=== PATIENT | male | born 1975 | race Caucasian/White ===

== ENCOUNTER 2016-12-10 15:43 | Inpatient (IN) | payer MEDICAID ==
[~2016-12-10] VITALS: Ht 160 cm; Wt 66.7 kg
[2016-12-10 16:01] VITALS: BP 144/86
[2016-12-10] MEDS ORDERED: ACETAMINOPHEN EXTRA STRENGTH 500 MG TAB ONE (16:06)
--- NOTE | 2016-12-10 16:13 | NUR ---
Patient taken to CT via wheelchair per tech--from lobby.
--- NOTE | 2016-12-10 16:23 | NUR ---
Patient back from CT via wheelchair per tech--to lobby.
--- NOTE | 2016-12-10 17:53 | NUR ---
Patient ambulated to bed 04.
[2016-12-10] MEDS ORDERED: KETOROLAC 30 MG/ML VIAL IVP ONE (17:55)
[2016-12-10] MEDS ORDERED: NACL 0.9% 1,000 ML IV ONE ×2 (17:55→19:20)
--- NOTE | 2016-12-10 18:15 | NUR ---
LAB at bedside.
--- NOTE | 2016-12-10 18:23 | NUR ---
PT PRESENTS TO ER W/C/O RLQ PAIN SINCE THIS AM. DENIES DIARRHEA; SKIN IS PINK/WARM/DRY; AAOX4 WITH EVEN AND STEADY GAIT; LUNGS CLEAR BL; HR EVEN AND REGULAR; PT DENIES ANY FEVER, CP, SOB, OR COUGH AT THIS TIME; PATIENT STATES PAIN OF 7/10 AT THIS TIME; VSS; PATIENT POSITIONED FOR COMFORT; HOB ELEVATED; BEDRAILS UP X2; BED DOWN. ER MD MADE AWARE OF PT STATUS.
[2016-12-10 18:32] LABS: HEMATOCRIT 44.8 % (36-52); MEAN CORPUSCULAR HEMOGLOBIN 31 pg (27-31); MEAN CORPUSCULAR HGB CONC 34 g/dL (33-37); MEAN CORPUSCULAR VOLUME 91 fL (80-94); PLATELET COUNT (AUTO) 252 K/uL (140-450); RED BLOOD CELL COUNT(AUTO) 4.91 MIL/uL (4.20-6.10); WHITE BLOOD COUNT (AUTO) 14.1 K/uL (4.8-10.8)
[2016-12-10 18:34] LABS: APPEARANCE,URINE CLEAR (CLEAR); BILIRUBIN,URINE NEGATIVE (NEGATIVE); BLOOD, URINE 3+ (NEGATIVE); COLOR,URINE YELLOW (YELLOW); LEUKOCYTE ESTERASE ,URINE NEGATIVE (NEGATIVE); NITRITE, URINE NEGATIVE (NEGATIVE); PROTEIN,URINE 1+ (NEGATIVE); UGLUCOSE NEGATIVE (NEGATIVE); UROBILINOGEN,URINE 0.2 EU/dL (0.2 - 1)
[2016-12-10 18:39] LABS: BACTERIA,URINE RARE /HPF (None Seen); MUCUS,URINE 2+ /LPF (None Seen); RBC,URINE 80-100 /HPF (0-5); SQUAMOUS EPITHELIAL CELL,UR None Seen /LPF (0-3 (FEW)); WBC,URINE 0-3 /HPF (0-5)
[2016-12-10 18:40] LABS: ANION GAP 14.2 (8-16); CALCIUM 8.9 mg/dL (8.5-10.1); CARBON DIOXIDE 26.8 mmol/L (21-32); CREATININE 1.2 mg/dL (0.7-1.3)
[2016-12-10 18:48] LABS: BAND % (MANUAL) 5 % (0-8); LYMPHOCYTES % (MANUAL) 7 % (20-46); MONOCYTES % (MANUAL) 3 % (5-12); NEUTROPHILS % (MANUAL) 85 (43-65)
[2016-12-10 18:49] LABS: PLATELET ESTIMATE ADEQUATE
[2016-12-10 18:53] LABS: ALBUMIN 4.4 g/dL (3.4-5.0); TOTAL BILIRUBIN 0.5 mg/dL (0.0-1.0); TOTAL PROTEIN, SERUM 8.5 g/dL (6.4-8.2)
--- NOTE | 2016-12-10 19:08 | NUR ---
Note kirsten in ED - 12/10/16 at 8 by CAIT PT RESTING IN BED, ON MONITOR, VSS. PT ASLEEP, NO S/S OF DISTRESS NOTED AT THE MOMENT.
--- NOTE | 2016-12-10 19:17 | NUR ---
PT RESTING IN BED, ON MONITOR, VSS. PT C/O PAIN 11/02 RLQ. ER MADE AWARE.
[2016-12-10] MEDS ORDERED: MORPHINE SULFATE 4 MG/ML SYR IVP ONE (19:20)
--- NOTE | 2016-12-10 19:27 | NUR ---
REPORT GIVEN TO JEMIMA PALUMBO
[2016-12-10] MEDS ORDERED: cefTRIAXone 1,000 MG VIAL ONE (19:34)
--- NOTE | 2016-12-10 19:45 | NUR ---
Note kirsten in EDM - 12/10/16 at 1959 by CAIT PT TRASFERRED VIA GURNEY TO TELEMETRY. ACCOMPANIED BY RN AND EMT. NO S/S OF DISTRESS NOTED DURING TRASFER.
--- NOTE | 2016-12-10 19:45 | NUR ---
Note kirsten in EDM - 12/10/16 at 2000 by [facility] Patient will be admitted to care of DR. GALINDO. Admited to TELEMETRY. Will go to [id number]. Belongings list completed. Report to JEMIMA ROSALES.
[2016-12-10 20:11] LABS: LACTIC ACID 0.8 mmol/L (0.4-2.0)
[2016-12-10] MEDS ORDERED: ONDANSETRON 4 MG/2 ML VIAL IM/IVP PRN (20:20)
[2016-12-10] MEDS ORDERED: DOCUSATE SODIUM 100 MG GELCAP PO PRN (20:20)
--- NOTE | 2016-12-10 20:26 | NUR ---
Patient will be admitted to care of DR MAYES. Admited to TELEMETRY. Will go to room 106B. Belongings list completed. Report to JEMIMA DUMONT.
--- NOTE | 2016-12-10 20:30 | NUR ---
PT TRASFERRED TO TELEMETRY, VIA GURNEY. ACCOMPANIED BY RN AND EMT. NO S/S OF DISTRESS NOTED UPON DC.
[2016-12-10 20:47] LABS: PARTIAL THROMBOPLASTIN TIME 23.2 secs (22-35.6); PROTHROMBIN TIME 10.2 secs (10.8-13.4)
[2016-12-10 20:50] VITALS: BP 120/64
--- NOTE | 2016-12-10 20:50 | NUR ---
RECEIVED PT FROM ER VIA [facility] WITH DX KIDNEY STONE PT IS AAOX4 AMBULATORY KYRGYZ SPEAKER ON TELEMETRY SR HL ON LEFT AC PATENT, RELATIVE AT BED SIDE DENIES ANY PAIN , PAIN MEDIC WAS GIVEN IN ER, DR BERTRAND IS HERE AND SEE THE PT PT IS ORIENTED TO THE FLOOR CALL LIGHT WITHIN REACH
[2016-12-10 20:58] LABS: CHOL/HDL RATIO 5.5 (1-4.5); FREE T4 (FREE THYROXINE) 0.94 ng/dL (0.76-1.46); MAGNESIUM 2.1 mg/dL (1.8-2.4); PHOSPHORUS 4.3 mg/dL (2.5-4.9); THYROID STIMULATING HORMONE 1.25 uIU/mL (0.34-3.74)
--- NOTE | 2016-12-10 21:15 | NUR ---
DR ROJAS UROLOGIST IS HERE AND SEE THE PT AND EXPLAIN THE PROCEDURE ABOUT NEPHOSTOMY TUBE INSERTION
[2016-12-10] MEDS ORDERED: LEVOFLOXACIN 750 MG/D5W PREMIX 150 ML IV SCH (22:10)
[2016-12-10] MEDS: NACL 0.9% 1,000 ML IV SCH (22:10)
[2016-12-11] VITALS: BP_SYST 101; BP_SYST 115; BP_DIAS 65; BP_DIAS 80
[2016-12-11] MEDS ORDERED: LEVOFLOXACIN 750 MG/D5W PREMIX 150 ML IV SCH
--- NOTE | 2016-12-11 | NUR ---
PT VOIDING WELL YELLOW URINE DENIES ANY PAIN ON TELEMETRY SR
--- NOTE | 2016-12-11 04:00 | NUR ---
SPONGE BATH GIVEN LINEN CHANGED ON TELEMETRY SR DENIES ANY PAIN URINE HAS BEEN STRAIN AND NOT STONES SEEN
[2016-12-11] MEDS: NACL 0.9% 1,000 ML IV SCH ×3 (04:54→18:14)
[2016-12-11 05:38] VITALS: BP 101/60
--- NOTE | 2016-12-11 05:43 | NUR ---
IV ON LEFT ARM INFUSING WELL DENIES ANY PAIN SLEEPING WELL
[2016-12-11 05:54] LABS: BASOPHILS # (AUTO) 0.1 K/uL (0.00-0.22); BASOPHILS % (AUTO) 1.7 % (0.0-2.0); EOSINOPHILS # (AUTO) 0.1 K/uL (0-0.4); EOSINOPHILS % (AUTO) 1.9 % (0.0-4.0); HEMATOCRIT 38.2 % (36-52); HEMOGLOBIN 13.1 g/dL (12.0-18.0); LYMPHOCYTES # (AUTO) 1.8 K/uL (2.0-11.5); LYMPHOCYTES % (AUTO) 23.3 % (20.5-51.1); MEAN CORPUSCULAR HEMOGLOBIN 31 pg (27-31); MEAN CORPUSCULAR HGB CONC 34 g/dL (33-37); MEAN CORPUSCULAR VOLUME 91 fL (80-94); MONOCYTES # (AUTO) 0.8 K/uL (0.8-1.0); MONOCYTES % (AUTO) 9.7 % (1.7-9.3); NEUTROPHILS % (AUTO) 63.4 % (42.2-75.2); PLATELET COUNT (AUTO) 210 K/uL (140-450); RED BLOOD CELL COUNT(AUTO) 4.19 MIL/uL (4.20-6.10); RED CELL DISTRIBUTION WIDTH 11.7 % (11.6-13.7); WHITE BLOOD COUNT (AUTO) 7.8 K/uL (4.8-10.8)
--- NOTE | 2016-12-11 06:19 | NUR ---
PT NPO WILL BE ENDORSED TO DAY SHIF COMING, ON TELMETRY SR DENIES ANY PAIN
[2016-12-11 06:26] LABS: INR 1.1 (0.8-1.2); PARTIAL THROMBOPLASTIN TIME 25.4 secs (22-35.6); PROTHROMBIN TIME 10.9 secs (10.8-13.4)
--- NOTE | 2016-12-11 07:05 | NUR ---
RECEIVED REPORT FROM NIGHT RN. PT RESTING IN BED. AAOX4. NO S/S OF ACUTE DISTRESS. PT DENIES PAIN AT THIS TIME. IV SITE PATENT AND INTACT. CALL LIGHT WITHIN REACH. SAFETY MEASURES ENSURED. WILL CONTINUE TO MONITOR.
[2016-12-11 08:00] VITALS: BP 119/74
--- NOTE | 2016-12-11 08:00 | NUR ---
MD IN TO SEE PT AND UPDATE ON PLAN OF CARE. PT VERBALIZED UNDERSTANDING. OBTAINED CONSENT FOR NEPHROSTOMY TUBE USING BLUE WAD LUBRICATOR KISHORNENOGIORGIO [id number].
[2016-12-11] MEDS: LACTOBACILLUS RHAMNOSUS GG 1 EACH CAP PO SCH ×2 (09:11→20:35)
[2016-12-11] MEDS: TAMSULOSIN 0.4 MG CAP PO SCH (09:11)
--- NOTE | 2016-12-11 09:14 | NUR ---
AM MEDICATION GIVEN WITH EDUCATION. PT VERBALIZED UNDERSTANDING, PT TOLERATED WELL, WILL CONTINUE TO MONITOR.
--- NOTE | 2016-12-11 09:51 | NUR ---
PATIENT HAS BEEN SCREENED AND CATEGORIZED HIGH NUTRITION RISK. PATIENT WILL BE SEEN WITHIN 1-2 DAYS OF ADMISSION. 12/11/16-12/12/[address]
--- NOTE | 2016-12-11 11:01 | NUR ---
12/11/16 RD INITIAL ASSESSMENT COMPLETED PLEASE REFER TO NUTRITION ASSESSMENT UNDER CARE ACTIVITY FOR ESTIMATED NUTRITIONAL NEEDS. 1. WHEN MEDICALLY FEASIBLE CONSIDER INITIATING PO DIET - LOW FAT/LOW CHOLESTEROL DIET 2. RD TO FOLLOW-UP 2-3 DAYS; HIGH RISK DANIELA KRISHNA RD
--- NOTE | 2016-12-11 11:42 | NUR ---
PT RESTING IN BED. NO S/S OF ACUTE DISTRESS. PT DENIES PAIN. FAMILY AT BEDSIDE. WILL CONTINUE TO MONITOR.
[2016-12-11] MEDS ORDERED: fentaNYL 0.05 MG/ML VIAL ONE (11:46)
[2016-12-11] MEDS ORDERED: MIDAZOLAM 2 MG/2 ML VIAL ONE (11:46)
[2016-12-11 12:00] VITALS: BP 113/67
--- NOTE | 2016-12-11 12:34 | NUR ---
PT TAKEN OFF UNIT.
--- NOTE | 2016-12-11 14:08 | NUR ---
PT BACK FROM OR. NO S/S OF ACUTE DISTRESS. PT DENIES PAIN. WILL CONTINUE TO MONITOR.
--- NOTE | 2016-12-11 15:41 | NUR ---
PT RESTING IN BED. AAOX4. NO S/S OF ACUTE DISTRESS. PT DENIES PAIN. WILL CONTINUE TO MONITOR.
[2016-12-11 16:00] VITALS: BP 117/54
[2016-12-11] MEDS: HYDROcodone/APAP 7.5/325 MG 1 TAB PO PRN ×2 (16:24→20:36)
[2016-12-11] MEDS: MORPHINE SULFATE 2 MG/ML SYR IVP PRN (17:34)
--- NOTE | 2016-12-11 19:21 | NUR ---
ENDORSED PLAN OF CARE TO NIGHT INSOLE AND OUTSOLE PREPARER. PT REMAINS STABLE.
--- NOTE | 2016-12-11 19:22 | NUR ---
RECD. RESTING IN BED, AWAKE, A/OX4. RESPIRATION EVEN AND UNLABORED. IV OF NS AT 150 ML/HR INFUSING LEFT AC G20. NEPHROSTOMY TUBED DRAINING LIGHT REDDISH ORANGE URINE. ON BILATERAL LEG SEQUENTIALS. PLAN OF CARE FOR THE SHIFT DISCUSSED. VERBALIZED UNDERSTANDING. DENIES PAIN 0/10.
--- NOTE | 2016-12-11 20:00 | NUR ---
Patient's Plan of Care was discussed and reviewed with RECREATION FACILITY MANAGER: TIMOTHY CASTANO.
--- NOTE | 2016-12-11 20:28 | NUR ---
2100 ANTIBIOTIC GIVEN. PT STABLE.
[2016-12-11] MEDS: ATORVASTATIN 20 MG TAB PO SCH (20:35)
[2016-12-12] VITALS: BP 123/68
--- NOTE | 2016-12-12 | NUR ---
SLEEPING COMFORTABLY IN BED.
[2016-12-12] MEDS: NACL 0.9% 1,000 ML IV SCH ×5 (00:54→23:09)
--- NOTE | 2016-12-12 03:30 | NUR ---
WARM BLANKETS GIVEN REQUESTED.
[2016-12-12 05:53] LABS: BASOPHILS # (AUTO) 0.1 K/uL (0.00-0.22); BASOPHILS % (AUTO) 1.5 % (0.0-2.0); EOSINOPHILS # (AUTO) 0.3 K/uL (0-0.4); EOSINOPHILS % (AUTO) 3.2 % (0.0-4.0); HEMATOCRIT 38.2 % (36-52); HEMOGLOBIN 12.8 g/dL (12.0-18.0); LYMPHOCYTES # (AUTO) 2.6 K/uL (2.0-11.5); LYMPHOCYTES % (AUTO) 32.9 % (20.5-51.1); MEAN CORPUSCULAR HEMOGLOBIN 31 pg (27-31); MEAN CORPUSCULAR HGB CONC 34 g/dL (33-37); MEAN CORPUSCULAR VOLUME 92 fL (80-94); MONOCYTES # (AUTO) 0.7 K/uL (0.8-1.0); MONOCYTES % (AUTO) 8.8 % (1.7-9.3); NEUTROPHILS # (AUTO) 4.3 K/uL (1.8-7.7); NEUTROPHILS % (AUTO) 53.6 % (42.2-75.2); PLATELET COUNT (AUTO) 218 K/uL (140-450); RED BLOOD CELL COUNT(AUTO) 4.18 MIL/uL (4.20-6.10); RED CELL DISTRIBUTION WIDTH 11.7 % (11.6-13.7)
--- NOTE | 2016-12-12 06:00 | NUR ---
EMPTY 200 ML LIGHT REDDISH ORANGE URINE FROM NEPHROSTOMY BAG.
[2016-12-12 06:26] LABS: ANION GAP 7.7 (8-16); CALCIUM 7.6 mg/dL (8.5-10.1); CARBON DIOXIDE 30.1 mmol/L (21-32); CREATININE 0.8 mg/dL (0.7-1.3); POTASSIUM 3.8 mmol/L (3.5-5.1)
--- NOTE | 2016-12-12 06:29 | NUR ---
REQUESTED ONLY ONCE FOR PAIN MEDICATION. ABLE TO SLEPT WELL. CONDITION REMAIN STABLE. WILL ENDORSED TO AM NURSE FOR CONTINUITY OF CARE.
--- NOTE | 2016-12-12 07:20 | NUR ---
ENDORSED TO JEMIMA BALLARD FOR CONTINUITY OF CARE.
--- NOTE | 2016-12-12 07:21 | NUR ---
RECEIVED PT IN BED. ASLEEP. AROUSABLE TO VOICE. NO SOB NOTED. DENIES ANY PAIN OR DISCOMFORT AT THIS TIME. POSITIVVE BOWEL SOUNDS NOTED ON FOUR QUADRANTS. RIGHT NEPHROSTOMY TUBE IN PLACE. INTACT, PATENT, DRAINING CLEAR YELLOW URINE. PT AMBULATORY. SAFETY PRECAUTION IN PLACE. CALL LIGHT WITHIN REACH.
[2016-12-12 08:00] VITALS: BP 112/66
[2016-12-12 08:20] LABS: HEMOGLOBIN A1C 5.4 % (4.8-5.6); T4 (THYROXINE) 7.6 ug/dL (4.5-12.0)
[2016-12-12] MEDS: MORPHINE SULFATE 2 MG/ML SYR IVP PRN ×4 (08:44→23:04)
[2016-12-12] MEDS: LACTOBACILLUS RHAMNOSUS GG 1 EACH CAP PO SCH ×2 (08:44→20:13)
[2016-12-12] MEDS: TAMSULOSIN 0.4 MG CAP PO SCH (08:44)
[2016-12-12] MEDS ORDERED: oxyCODONE/APAP 5/325 MG 1 TAB TAB PO PRN (11:05)
--- NOTE | 2016-12-12 11:24 | NUR ---
SS NOTE: I SPOKE WITH PT AND PT'S , BOO BEATTY. I PROVIDED THEM WITH LOW COST CLINIC INFORMATION WELL A PRESCRIPTION DISCOUNT CARD.
--- NOTE | 2016-12-12 12:28 | NUR ---
TEACHINGS REGARDING EMPTYING OF NEPHROSTOMY BAG GIVEN TO PT. PT VERBALIZED UNDERSTANDING. NO SOB, DENIES ANY PAIN OR DISCOMFORT AT THIS TIME. NEPHROSTOMY TUBE INTACT. DRAINING CLEAR YELLOW URINE. FAMILY AT BEDSIDE.
[2016-12-12 16:00] VITALS: BP 135/73
--- NOTE | 2016-12-12 19:32 | NUR ---
PT KEPT CLEAN DRY AND COMFORTABLE. NEEDS ATTENDED. ENDORSED TO NEXT SHIFT FOR CONTINUITY OF CARE. PT ON STABLE CONDITION.
--- NOTE | 2016-12-12 19:35 | NUR ---
RECEIVED PT AWAKE, DENIES ANY PAIN, RT NEPHROSTOMY TUBE IN PLACE DRAINING CLEAR YELLOW URINE, DRESSING TO SITE DRY AND INTACT, NO SIGNS OF BLEEDING NOTED, IVF INFUSING WELL, PLAN OF CARE DISCUSSED, CALL LIGHT WITHIN REACH.
[2016-12-12] MEDS: ATORVASTATIN 20 MG TAB PO SCH (20:13)
--- NOTE | 2016-12-12 20:30 | NUR ---
AMBULATED IN THE ROOM WITH STEADY GAIT, DUE MEDICATIONS ADMINISTERED, PT VOIDED FREELY PER URINAL, ALL NEEDS ATTENDED.
--- NOTE | 2016-12-12 23:05 | NUR ---
PT IN PAIN, VITAL SIGNS STABLE, MEDICATED PRN WITH MORPHINE IVP, IVF INFUSING WELL, MONITORED CLOSELY.
[2016-12-13] VITALS: BP 121/70
[2016-12-13] MEDS: NACL 0.9% 1,000 ML IV SCH ×2 (03:34→08:58)
--- NOTE | 2016-12-13 03:40 | NUR ---
ROUNDED ON PT, SLEEPING, NO SIGNS OF DISTRESS, IVF INFUSING WELL, MONITORED CLOSELY.
--- NOTE | 2016-12-13 06:10 | NUR ---
PT VOIDED FREELY ON URINAL WITH CLEAR YELLOW OUTPUT, RT NEPHROSTOMY TUBE DRAINING WELL WITH YELLOW URINE, DRESSING DRY AND INTACT, DENIES ANY PAIN, MONITORED CLOSELY.
--- NOTE | 2016-12-13 07:15 | NUR ---
PT AWAKE, DENIES ANY PAIN, REPORT GIVEN TO JEMIMA PITTMAN FOR CONTINUITY OF CARE.
--- NOTE | 2016-12-13 07:16 | NUR ---
RECEIVED REPORT AT BEDSIDE. NO S/S OF ACUTE DISTRESS. ALERT AND ORIENTED. DENIES PAIN. IV SITE PATENT AND INTACT. RIGHT SIDE NEPHROSTOMY TUBE TO DRAIN. PATIENT AMBULATORY, VOIDS USING URINAL. PATIENT DENIES SEEING RENAL STONES. CALL LIGHT WITHIN REACH.
--- NOTE | 2016-12-13 07:21 | NUR ---
12/13/16 RD FOLLOW-UP ASSESSMENT COMPLETED PLEASE REFER TO NUTRITION ASSESSMENT UNDER CARE ACTIVITY FOR ESTIMATED NUTRITIONAL NEEDS. 1. CHANGE DIET TO CARDIAC DIET 2. RD TO FOLLOW-UP 3-5 DAYS; MODERATE RISK DANIELA KRISHNA RD
[2016-12-13 08:00] VITALS: BP 116/70
[2016-12-13] MEDS: TAMSULOSIN 0.4 MG CAP PO SCH (08:58)
[2016-12-13] MEDS: LACTOBACILLUS RHAMNOSUS GG 1 EACH CAP PO SCH (08:58)
[2016-12-13] MEDS ORDERED: LEVO500T22 PO (09:21)
[2016-12-13] MEDS ORDERED: TAMS0.4C96 PO (09:34)
[2016-12-13] MEDS ORDERED: LACT10CA PO (09:34)
--- NOTE | 2016-12-13 12:00 | NUR ---
PATIENT MEDICATED FOR FLANK DISCOMFORT. NO S/S OF ACUTE DISTRESS.
--- NOTE | 2016-12-13 12:52 | NUR ---
PATIENT DISCHARGE INSTRUCTIONS GIVEN WITH F/U APPOINTMENTS. NEPHROSTOMY TUBE CARE TEACHING GIVEN TO PATIENT AND FAMILY. PATIENT IS ALERT AND ORIENTED. AMBULATORY. CARE SUPPLIES GIVEN TO PATIENT FOR CARE AND DRAIN OF URINE. PATIENT AT BEDSIDE TO TAKE PT HOME. PATIENT WHEELED TO FRONT LOBBY. NO S/S OF DISTRESS.
== END 2016-12-13 12:54 | disposition home or self-care (01) | DRG 710 ==
LOC: MED 15:43 → MTU 20:23
PROVIDERS: ADMIT Student in an Organized Health Care Education/Training Program; ATTEND Student in an Organized Health Care Education/Training Program
PROC: 0T9030Z Drainage of Right Kidney with Drainage Device, Percutaneous Approach (ICD-10-PCS; principal; 2016-12-11 13:55)
DX: A41.9 Sepsis, unspecified organism (principal); N17.0 Acute kidney failure with tubular necrosis; N20.0 Calculus of kidney; N13.9 Obstructive and reflux uropathy, unspecified; E78.2 Mixed hyperlipidemia; Z53.29 Procedure and treatment not carried out because of patient's decision for other reasons
CPT/HCPCS: 36415; 50432; 76770; 80048; 80053; 81001; 82150; 83036; 83605; 83690; 83735; 83880; 84100; 84436; 84439; 84443; 84479; 85025; 85610; 85730; 87040; 87081; 87086; 96365; 96375; 99285; C1729; J0696; J1885; J1956; J2001; J2250; J2270; J3010; J7030; J7060; Q0092; Q9967

== ENCOUNTER 2017-02-02 19:02 | Inpatient (IN) | payer MEDICAID ==
[~2017-02-02] VITALS: Ht 160 cm; Wt 68.5 kg
[~2017-02-02 19:02] MED LIST: LACT10CA PO; LEVO500T2 PO; TAMS0.4C96 PO
[2017-02-02 19:15] VITALS: BP 131/83
--- NOTE | 2017-02-02 19:23 | NUR ---
TO ER BED 6
--- NOTE | 2017-02-02 19:30 | NUR ---
41 Y/O M W/C/O RIGHT NEPHROSTOMY TUBE DISLOGMENT X 1 HR AGO. PT STATES ACCIDENTLY PULLED OUT, PT W/C/O PAIN AND GENERAL WEAKNESS. VSS, NO OTHER S/S OF DISTRESS NOTED AT THE MOMENT. ER MD MADE AWARE.
--- NOTE | 2017-02-02 19:45 | NUR ---
Patient being evaluated by physician at bedside.
[2017-02-02] MEDS ORDERED: NACL 0.9% 1,000 ML IV SCH (19:49)
[2017-02-02] MEDS ORDERED: KETOROLAC 30 MG/ML VIAL IVP ONE (19:50)
--- NOTE | 2017-02-02 20:09 | NUR ---
PT TAKING FOR CT VIA WHEEL CHAIR.
[2017-02-02 20:19] LABS: BASOPHILS # (AUTO) 0.3 K/uL (0.00-0.22); BASOPHILS % (AUTO) 2.4 % (0.0-2.0); EOSINOPHILS # (AUTO) 0.4 K/uL (0-0.4); EOSINOPHILS % (AUTO) 3.4 % (0.0-4.0); HEMATOCRIT 44.3 % (36-52); HEMOGLOBIN 14.8 g/dL (12.0-18.0); LYMPHOCYTES # (AUTO) 2.9 K/uL (2.0-11.5); LYMPHOCYTES % (AUTO) 24.1 % (20.5-51.1); MEAN CORPUSCULAR HEMOGLOBIN 30 pg (27-31); MEAN CORPUSCULAR HGB CONC 33 g/dL (33-37); MEAN CORPUSCULAR VOLUME 90 fL (80-94); MONOCYTES # (AUTO) 0.8 K/uL (0.8-1.0); MONOCYTES % (AUTO) 6.7 % (1.7-9.3); NEUTROPHILS # (AUTO) 7.8 K/uL (1.8-7.7); NEUTROPHILS % (AUTO) 63.4 % (42.2-75.2); PLATELET COUNT (AUTO) 280 K/uL (140-450); RED BLOOD CELL COUNT(AUTO) 4.91 MIL/uL (4.20-6.10); RED CELL DISTRIBUTION WIDTH 11.9 % (11.6-13.7); WHITE BLOOD COUNT (AUTO) 12.2 K/uL (4.8-10.8)
[2017-02-02 20:33] LABS: ANION GAP 12.8 (8-16); CARBON DIOXIDE 30.6 mmol/L (21-32); CREATININE 0.8 mg/dL (0.7-1.3); POTASSIUM 4.4 mmol/L (3.5-5.1)
[2017-02-02 20:39] LABS: ALBUMIN 4.2 g/dL (3.4-5.0); TOTAL BILIRUBIN 0.3 mg/dL (0.0-1.0)
[2017-02-02 20:47] LABS: BILIRUBIN,URINE NEGATIVE (NEGATIVE); BLOOD, URINE 3+ (NEGATIVE); COLOR,URINE YELLOW (YELLOW); LEUKOCYTE ESTERASE ,URINE 1+ (NEGATIVE); NITRITE, URINE POSITIVE (NEGATIVE); UGLUCOSE NEGATIVE (NEGATIVE)
[2017-02-02 20:51] LABS: APPEARANCE,URINE HAZY (CLEAR)
[2017-02-02 20:56] LABS: RBC,URINE 11-20 (MOD) /HPF (0-5)
[2017-02-02 20:58] LABS: WBC,URINE 0-5 (RARE) /HPF (0-5)
[2017-02-02] MEDS ORDERED: cefTRIAXone 2,000 MG in DEXTROSE 5% 100 ML IV ONE (21:25)
[2017-02-02] MEDS ORDERED: cefTRIAXone 2,000 MG VIAL ONE (21:37)
--- NOTE | 2017-02-02 21:39 | NUR ---
PT RESTING IN BED, VSS, NO S/S OF DISTRESS NOTED AT THE MOMENT.
[2017-02-02] MEDS ORDERED: HYDROcodone/APAP 7.5/325 MG 1 TAB PO PRN (22:05)
[2017-02-02] MEDS ORDERED: DOCUSATE SODIUM 100 MG GELCAP PO PRN (22:05)
--- NOTE | 2017-02-02 22:16 | NUR ---
Patient will be admitted to care of DR DOWNEY. Admited to TELEMETRY. Will go to room 111A. Belongings list completed. Report to JEMIMA DENTON.
--- NOTE | 2017-02-02 22:30 | NUR ---
PT TRANSFERED TO FLOOR VIA [facility], MONITOR IN BED, VSS. ACCOMPANIED BY RN AND EMT.
[2017-02-02 22:40] VITALS: BP 132/72
[2017-02-02] MEDS: NACL 0.9% 1,000 ML IV SCH (22:40)
--- NOTE | 2017-02-02 22:40 | NUR ---
ADMITTED PATIENT TO THE TELE UNIT, PATIENT RESTING IN BED, AWAKE ALERT ORIENTED X4, NO S/S OF ACUTE DISTRESS NOTED, RESPIRATION EVEN AND UNLABORED, FLUSHED IV WITH 10ML NS, PATENT AND INTACT, TELE MONITOR PLACED ON PATIENT. PLAN OF CARE DISCUSSED, VERBALIZED UNDERSTANDING, CALL LIGHT WITHIN REACH, SAFETY MEASURE ENSURED, WILL CONTINUE TO MONITOR.
[2017-02-02 22:44] LABS: PROTHROMBIN TIME 9.7 secs (10.8-13.4)
[2017-02-02] MEDS: TAMSULOSIN 0.4 MG CAP PO SCH (22:50)
[2017-02-02 22:53] LABS: CHOL/HDL RATIO 7.5 (1-4.5); FREE T4 (FREE THYROXINE) 0.89 ng/dL (0.76-1.46); MAGNESIUM 2.1 mg/dL (1.8-2.4); PHOSPHORUS 3.7 mg/dL (2.5-4.9); THYROID STIMULATING HORMONE 4.73 uIU/mL (0.34-3.74)
[2017-02-02] MEDS: ATORVASTATIN 20 MG TAB PO SCH (23:05)
[2017-02-02] MEDS ORDERED: TAMSULOSIN 0.4 MG CAP PO ONE (23:05)
--- NOTE | 2017-02-02 23:19 | NUR ---
DR. AMBROSE IS EXAMINING THE PATIENT AT THE BEDSIDE
[2017-02-02] MEDS ORDERED: ATORVASTATIN 20 MG TAB PO ONE (23:30)
[2017-02-02] MEDS: ACETAMINOPHEN 325 MG TAB PO PRN (23:40)
[2017-02-03 00:15] VITALS: BP 124/77
--- NOTE | 2017-02-03 01:21 | NUR ---
PATIENT IS SLEEPING AT THIS TIME. RESPIRATION EVEN AND UNLABORED, NO S/S OF ACUTE DISTRESS NOTED, CALL LIGHT WITHIN REACH, SAFETY MEASURE ENSURED, WILL CONTINUE TO MONITOR.
--- NOTE | 2017-02-03 03:51 | NUR ---
STRAINED 430ML URINE, NO STONE NOTED. PATIENT IS SLEEPING AT THIS TIME, RESPIRATION EVEN AND UNLABORED, NO S/S OF ACUTE DISTRESS NOTED, CALL LIGHT WITHIN REACH, SAFETY MEASURE ENSURED, WILL CONTINUE TO MONITOR.
[2017-02-03 04:00] VITALS: BP 105/58
--- NOTE | 2017-02-03 04:54 | NUR ---
VTE RISK SCORE IS 0 AND PATIENT IS AMBULATORY, SCD IS NOT APPLIED ON THE PATIENT, CHARGE NURSE IS AWARE.
[2017-02-03] MEDS: NACL 0.9% 1,000 ML IV SCH ×3 (06:05→20:42)
--- NOTE | 2017-02-03 06:57 | NUR ---
PATIENT IS SLEEPING AT THIS TIME. NO S/S OF ACUTE DISTRESS NOTED, RESPIRATION EVEN AND UNLABORED, CALL LIGHT WITHIN REACH, SAFETY MEASURE ENSURED, WILL CONTINUE TO MONITOR.
--- NOTE | 2017-02-03 07:27 | NUR ---
ENDORSED PLAN OF CARE TO DAY RN, PATIENT RESTING IN BED, NO S/S OF ACUTE DISTRESS NOTED, RESPIRATION EVEN AND UNLABORED.
--- NOTE | 2017-02-03 07:29 | NUR ---
RECEIVED PATIENT AT BEDSIDE FROM NIGHT NURSE. PATIENT IS AAOX4 AND SHOWS NO S/S OF ACUTE DISTRESS ROOM AIR. PATIENT SKIN IS INTACT. PATIENT IV NOTED ON THE L AC WITH IVF'S INFUSING WELL. ON TELE MONITOR. PATIENT DENIES PAIN. PATIENT WAS EXPLAINED POC FOR TODAY AND VERBALIZED UNDERSTANDING. PATIENT IS AWARE TO USE CALL LIGHT WHEN ASSISTANCE IS NEEDED. THE BED IS IN LOW POSITION AND CALL LIGHT WITHIN REACH. WILL CONTINUE TO MONITOR.
[2017-02-03 08:00] VITALS: BP 110/66
[2017-02-03 09:07] LABS: BASOPHILS # (AUTO) 0.2 K/uL (0.00-0.22); BASOPHILS % (AUTO) 2.3 % (0.0-2.0); EOSINOPHILS # (AUTO) 0.3 K/uL (0-0.4); EOSINOPHILS % (AUTO) 3.5 % (0.0-4.0); HEMOGLOBIN 13.2 g/dL (12.0-18.0); LYMPHOCYTES % (AUTO) 24.7 % (20.5-51.1); MEAN CORPUSCULAR HEMOGLOBIN 31 pg (27-31); MEAN CORPUSCULAR HGB CONC 34 g/dL (33-37); MEAN CORPUSCULAR VOLUME 91 fL (80-94); MONOCYTES # (AUTO) 0.7 K/uL (0.8-1.0); NEUTROPHILS # (AUTO) 4.9 K/uL (1.8-7.7); NEUTROPHILS % (AUTO) 60.5 % (42.2-75.2); PLATELET COUNT (AUTO) 236 K/uL (140-450); RED CELL DISTRIBUTION WIDTH 11.9 % (11.6-13.7); WHITE BLOOD COUNT (AUTO) 8.1 K/uL (4.8-10.8)
--- NOTE | 2017-02-03 09:13 | NUR ---
PATIENT HAS BEEN SCREENED AND CATEGORIZED MODERATE NUTRITION RISK. PATIENT WILL BE SEEN WITHIN 3-5 DAYS OF ADMISSION. 02/05/17-02/07/[address]
[2017-02-03 09:21] LABS: ANION GAP 10.6 (8-16); CARBON DIOXIDE 27.3 mmol/L (21-32); CREATININE 0.7 mg/dL (0.7-1.3); POTASSIUM 3.9 mmol/L (3.5-5.1)
[2017-02-03 09:25] LABS: MAGNESIUM 1.9 mg/dL (1.8-2.4); PHOSPHORUS 3.7 mg/dL (2.5-4.9)
[2017-02-03] MEDS: LACTOBACILLUS RHAMNOSUS GG 1 EACH CAP PO SCH (09:59)
[2017-02-03] MEDS: TAMSULOSIN 0.4 MG CAP PO SCH (09:59)
--- NOTE | 2017-02-03 09:59 | NUR ---
ADMINISTERED SCHEDULED MEDICATIONS. PATIENT TOLERATED WELL. PATIENT DENIES PAIN. WILL CONTINUE TO MONITOR.
[2017-02-03 12:00] VITALS: BP 101/61
--- NOTE | 2017-02-03 12:00 | NUR ---
PATIENT DENIES PAIN. PATIENT SHOWS NO S/S OF ACUTE DISTRESS ON ROOM AIR. WILL CONTINUE TO MONITOR.
[2017-02-03] MEDS: ACETAMINOPHEN 325 MG TAB PO PRN (14:07)
--- NOTE | 2017-02-03 14:10 | NUR ---
ADMINISTERED PRN TYLENOL 650 MG PO FOR HEADACHE 08/02. WILL REASSESS IN ONE HOUR.
--- NOTE | 2017-02-03 15:07 | NUR ---
PATIENT STATES NO HEADACHE. PATIENT BED IS LOWERED WITH CALL LIGHT WITHIN REACH. WILL CONTINUE TO MONITOR.
[2017-02-03 16:00] VITALS: BP 101/65
[2017-02-03] MEDS: ATORVASTATIN 20 MG TAB PO SCH (16:33)
--- NOTE | 2017-02-03 16:45 | NUR ---
PATIENT IS BEING BEEN BY DR PARRA. PATIENT IS TO HAVE A CYSTOSCOPY, R URETEROSCOPY, STONE LAZER, BASKETING WITH STENT PROCEDURE DONE FOR TOMORROW. DR ORDERED FOR CONSENT. ALL QUESTIONS ANSWERED BY DR. PATIENT AND FAMILY VERBALIZED UNDERSTANDING. PATIENT SIGNED CONSENT. DR ORDERED PATIENT TO EACH TONIGHT AND WILL BE NPO AT MIDNIGHT. WILL PLACE ORDERS. PATIENT SHOWS NO S/S OF ACUTE DISTRESS ON ROOM AIR. BED IS LOWERED WITH CALL LIGHT WITHIN REACH.
--- NOTE | 2017-02-03 19:10 | NUR ---
PATIENT REPORT GIVEN AT BEDSIDE TO NIGHT NURSE. PATIENT ENDORSED IN STABLE CONDITION.
--- NOTE | 2017-02-03 19:30 | NUR ---
RECEIVED REPORT FROM AM NURSE. PPT RESTING IN BED, AOX4, AMBULATES INDEPENDENTLY, ABLE TO VERBALIZE NEEDS. PT DENIES PAIN, SOB OR S/S OF ACUTE DISTRESS. NO S/S OF ACUTE DISTRESS. SCDs IN PLACE. IV ACCESS ASYMPTOMATIC, PATENT AND INTACT. IVF INFUSING WELL. DISCUSSED AND REVIEWED PLAN OF CARE WITH PT. PT VERBALIZED UNDERSTANDING. ALL NEEDS MET. SAFETY MEASURES ENSURED. CALL LIGHT WITHIN REACH. WILL CONTINUE TO MONITOR.
[2017-02-03 20:00] VITALS: BP 117/66
--- NOTE | 2017-02-03 20:20 | NUR ---
PT C/O PAIN. SEE PAIN ASSESSMENT. ADMINISTERED NORCO PO PRN ORDERED. PT TOLERATED WELL. ALL NEEDS MET. SAFETY MEASURES ENSURED. CALL LIGHT WITHIN REACH. WILL CONTINUE TO MONITOR.
[2017-02-04] VITALS: BP 108/64
[2017-02-04] MEDS: ZOLPIDEM 5 MG TAB PO PRN (01:18)
--- NOTE | 2017-02-04 01:18 | NUR ---
PT C/O INSOMNIA, ADMINISTERED AMBIEN PO PRN WITH EDUCATION ORDERED. PT VERBALIZED UNDERSTANDING, TOLERATED MED WELL. IVF INFUSING WELL. ALL NEEDS MET. SAFETY MEASURES ENSURED. CALL LIGHT WITHIN REACH. WILL CONTINUE TO MONITOR.
[2017-02-04] MEDS: NACL 0.9% 1,000 ML IV SCH ×4 (01:19→20:26)
--- NOTE | 2017-02-04 04:15 | NUR ---
PT SLEEPING COMFORTABLY. NO S/S OF ACUTE DISTRESS. IVF INFUSING WELL. ALL NEEDS MET. SAFETY MEASURES ENSURED. CALL LIGHT WITHIN REACH. WILL CONTINUE TO MONITOR.
--- NOTE | 2017-02-04 07:15 | NUR ---
ENDORSED PLAN OF CARE TO AM NURSE. CONDITION STABLE.
--- NOTE | 2017-02-04 07:28 | NUR ---
REPORT RECEIVED FROM ROCK WOOL APPLICATOR NURSE, PT SLEEPING QUIETLY IN NAD, RESP EVEN UNLABORED ON RA, PT AROUSES EASILY, DENIES PAIN OR DISCOMFORT, PLAN OF CARE REVIEWED, PROCEDURE SCHEDULED FOR 1400, PT VERBALIZED UNDERSTANDING, 250ML CLEAR YELLOW URINE STRAINED, NO STONES NOTED AT THIS TIME, , SAFETY MEASURES IN PLACE, CALL EPSTEIN WITHIN REACH, SIDE RAILS UP X2, BED LOCKED IN LOW POSITION, WILL CONTINUE TO MONITOR.
[2017-02-04 08:00] VITALS: BP 118/74
[2017-02-04] MEDS: TAMSULOSIN 0.4 MG CAP PO SCH (08:14)
[2017-02-04] MEDS: LACTOBACILLUS RHAMNOSUS GG 1 EACH CAP PO SCH (08:14)
--- NOTE | 2017-02-04 08:22 | NUR ---
ROCEPHINE STARTED SCHEDULED, IV SITE CLEAR, PO MEDS HELD, PT NPO.
[2017-02-04 09:21] LABS: BASOPHILS # (AUTO) 0.3 K/uL (0.00-0.22); BASOPHILS % (AUTO) 4.9 % (0.0-2.0); EOSINOPHILS # (AUTO) 0.3 K/uL (0-0.4); EOSINOPHILS % (AUTO) 4.7 % (0.0-4.0); HEMATOCRIT 38.9 % (36-52); HEMOGLOBIN 13.1 g/dL (12.0-18.0); LYMPHOCYTES % (AUTO) 35.5 % (20.5-51.1); MEAN CORPUSCULAR HEMOGLOBIN 31 pg (27-31); MEAN CORPUSCULAR HGB CONC 34 g/dL (33-37); MEAN CORPUSCULAR VOLUME 91 fL (80-94); MONOCYTES # (AUTO) 0.5 K/uL (0.8-1.0); MONOCYTES % (AUTO) 8.1 % (1.7-9.3); NEUTROPHILS # (AUTO) 2.6 K/uL (1.8-7.7); NEUTROPHILS % (AUTO) 46.8 % (42.2-75.2); PLATELET COUNT (AUTO) 226 K/uL (140-450); RED BLOOD CELL COUNT(AUTO) 4.29 MIL/uL (4.20-6.10); RED CELL DISTRIBUTION WIDTH 11.9 % (11.6-13.7); WHITE BLOOD COUNT (AUTO) 5.7 K/uL (4.8-10.8)
[2017-02-04 09:36] LABS: ANION GAP 7.6 (8-16); CARBON DIOXIDE 29.6 mmol/L (21-32); CREATININE 0.8 mg/dL (0.7-1.3); POTASSIUM 4.2 mmol/L (3.5-5.1)
[2017-02-04 09:37] LABS: PROTHROMBIN TIME 10.4 secs (10.8-13.4)
--- NOTE | 2017-02-04 10:25 | NUR ---
PREOP CHECKLIST COMPLETED, AWAITING PROCEDURE SCHEDULED FOR 1400, PT AWARE OF PLAN, PT DENIES ANY IMMEDIATE NEEDS, WILL CONTINUE TO MONITOR
[2017-02-04] MEDS: ACETAMINOPHEN 325 MG TAB PO PRN (12:32)
--- NOTE | 2017-02-04 12:38 | NUR ---
PT C/O , OK TO GIVE TYLENOL PO PER DR HERBERT.
--- NOTE | 2017-02-04 13:40 | NUR ---
PT TO OR WITH OR NURSE
[2017-02-04] MEDS ORDERED: MIDAZOLAM 2 MG/2 ML VIAL ONE (13:54)
[2017-02-04] MEDS ORDERED: fentaNYL 0.05 MG/ML VIAL ONE (13:54)
[2017-02-04] MEDS ORDERED: ONDANSETRON 4 MG/2 ML VIAL IVP ONE (13:55)
[2017-02-04] MEDS ORDERED: PROPOFOL 200 MG/20 ML VIAL IV ONE (13:55)
[2017-02-04] MEDS ORDERED: SEVOFLURANE 250 ML BTL INH ONE (13:55)
[2017-02-04] MEDS ORDERED: DEXAMETHASONE 4 MG/ML VIAL IVP ONE (13:55)
[2017-02-04] MEDS ORDERED: MEPERIDINE 25 MG/ML SYR IVP PRN (14:35)
[2017-02-04] MEDS ORDERED: ONDANSETRON 4 MG/2 ML VIAL IVP PRN (14:35)
[2017-02-04] MEDS ORDERED: diphenhydrAMINE 50 MG/ML VIAL IVP PRN (14:35)
[2017-02-04] MEDS ORDERED: HYDROmorphone 1 MG/ML AMP IVP PRN (14:35)
[2017-02-04] MEDS ORDERED: LACTATED RINGERS 1,000 ML IV SCH (14:35)
--- NOTE | 2017-02-04 15:30 | NUR ---
PT BACK FROM PACU, REPORT RECEIVED FROM RN DANIELA, PT AAOX4, RESP EVEN UNLABORED, VSS, CALL EPSTEIN WITHIN REACH, SIDE RAILS UP, URINATED, BLOODY URINE NOTED IN URINAL, WILL MEDICATE FOR PAIN.
[2017-02-04] MEDS ORDERED: MEPERIDINE 25 MG/ML SYR ONE (15:32)
[2017-02-04 15:40] VITALS: BP 131/66
[2017-02-04] MEDS: HYDROmorphone 1 MG/ML AMP IVP PRN ×3 (16:00→21:54)
[2017-02-04] MEDS: ONDANSETRON 4 MG/2 ML VIAL IM/IVP PRN ×2 (16:00→21:53)
--- NOTE | 2017-02-04 16:00 | NUR ---
PT REPORTS SEVER PAIN ON HIS PENIS, DILAUDID GIVEN PER PRN ORDER.
--- NOTE | 2017-02-04 17:00 | NUR ---
PT REPORTS PAIN IS BETTER NOW, SITTING UP TALKING WITH FAMILY, PINK URINE NOTED IN URINAL.
[2017-02-04] MEDS: ATORVASTATIN 20 MG TAB PO SCH (17:43)
--- NOTE | 2017-02-04 19:16 | NUR ---
REPORT GIVEN TO CAUSTIC STRENGTH INSPECTOR NURSE KORINA ANDERSON IN STABLE CONDITION.
--- NOTE | 2017-02-04 19:30 | NUR ---
RECEIVED REPORT FROM AM NURSE. PT FRIENDS AT BEDSIDE. PT IS S/P CYSTOSCOPY WITH RIGHT URETEROSCOPY WITH STONE, LASER, BASKET AND STENT TODAY. PT RESTING IN BED, AOX4, AMBULATES INDEPENDENTLY, ABLE TO VERBALIZE NEEDS. PT C/O PAIN, ALREADY MEDICATED, WILL GIVE PAIN MEDS WHEN DUE. NO S/S OF ACUTE DISTRESS. PT REPORTS URINARY FREQUENCY, DYSURIA AND HEMATURIA, WILL CONTINUE TO MONITOR. SCDs IN PLACE. IV ACCESS ASYMPTOMATIC, PATENT AND INTACT. IVF INFUSING WELL. DISCUSSED AND REVIEWED PLAN OF CARE WITH PT. PT VERBALIZED UNDERSTANDING. ALL NEEDS MET. SAFETY MEASURES ENSURED. CALL LIGHT WITHIN REACH. WILL CONTINUE TO MONITOR.
[2017-02-04 20:00] VITALS: BP 128/81
--- NOTE | 2017-02-04 21:54 | NUR ---
PT C/O PAIN. SEE PAIN ASSESSMENT. ADMINISTERED DUE PAIN MED WITH EDUCATION. PT VERBALIZED UNDERSTANDING. PT C/O NAUSEA. ADMINISTER ZOFRAN IV PRN ORDERED. ALL NEEDS MET. SAFETY MEASURES ENSURED. CALL LIGHT WITHIN REACH. WILL CONTINUE TO MONITOR.
[2017-02-05] VITALS: BP 136/91
--- NOTE | 2017-02-05 00:01 | NUR ---
PT HAD VOMITING EPISODE AT THIS TIME, EMESIS BAGS PROVIDED. VITAL SIGNS STABLE. PT ABLE TO TOLERATE NAUSEA AFTER VOMITING EPISODE. WILL CONTINUE TO MONITOR.
[2017-02-05] MEDS: ZOLPIDEM 5 MG TAB PO PRN (00:43)
--- NOTE | 2017-02-05 00:43 | NUR ---
PT C/O INSOMNIA. ADMINISTERED AMBIEN PO PRN WITH EDUCATION ORDERED. PT VERBALIZED UNDERSTANDING. ALL NEEDS MET. SAFETY MEASURES ENSURED. CALL LIGHT WITHIN REACH. WILL CONTINUE TO MONITOR.
--- NOTE | 2017-02-05 04:03 | NUR ---
PT SLEEPING COMFORTABLY. NO S/S OF ACUTE DISTRESS. IVF INFUSING WELL. ALL NEEDS MET. SAFETY MEASURES ENSURED. CALL LIGHT WITHIN REACH. WILL CONTINUE TO MONITOR.
[2017-02-05] MEDS: NACL 0.9% 1,000 ML IV SCH (04:08)
[2017-02-05 06:03] LABS: BASOPHILS # (AUTO) 0.1 K/uL (0.00-0.22); BASOPHILS % (AUTO) 1.4 % (0.0-2.0); EOSINOPHILS # (AUTO) 0.1 K/uL (0-0.4); EOSINOPHILS % (AUTO) 1.4 % (0.0-4.0); HEMATOCRIT 40.2 % (36-52); HEMOGLOBIN 13.6 g/dL (12.0-18.0); LYMPHOCYTES # (AUTO) 1.2 K/uL (2.0-11.5); LYMPHOCYTES % (AUTO) 15.9 % (20.5-51.1); MEAN CORPUSCULAR HEMOGLOBIN 31 pg (27-31); MEAN CORPUSCULAR HGB CONC 34 g/dL (33-37); MEAN CORPUSCULAR VOLUME 90 fL (80-94); MONOCYTES # (AUTO) 0.3 K/uL (0.8-1.0); MONOCYTES % (AUTO) 4.6 % (1.7-9.3); NEUTROPHILS # (AUTO) 5.7 K/uL (1.8-7.7); NEUTROPHILS % (AUTO) 76.7 % (42.2-75.2); PLATELET COUNT (AUTO) 235 K/uL (140-450); RED BLOOD CELL COUNT(AUTO) 4.44 MIL/uL (4.20-6.10); RED CELL DISTRIBUTION WIDTH 11.7 % (11.6-13.7); WHITE BLOOD COUNT (AUTO) 7.4 K/uL (4.8-10.8)
[2017-02-05 06:26] LABS: ANION GAP 8.5 (8-16); CREATININE 0.9 mg/dL (0.7-1.3); POTASSIUM 4.5 mmol/L (3.5-5.1)
--- NOTE | 2017-02-05 07:13 | NUR ---
ASSUMED CONTINUITY OF CARE. NO SIGNS AND SYMPTOMS OF ACUTE DISTRESS NOTED. INITIAL ASSESSMENT DONE. KEEP FAMILIARIZED WITH SURROUNDINGS. EXPLAINED DIAGNOSIS, PLAN OF CARE, PAIN MANAGEMENT TEACHING, STRAIN URINE TEACHING, USE OF CALL LIGHT/BED/TV/BATHROOM. VERBALIZED UNDERSTANDING. CALL LIGHT WITHIN REACH.
--- NOTE | 2017-02-05 07:15 | NUR ---
ENDORSED PLAN OF CARE TO AM NURSE. CONDITION STABLE.
[2017-02-05 08:00] VITALS: BP 126/80
--- NOTE | 2017-02-05 08:00 | NUR ---
Patient's Plan of Care was discussed and reviewed with DIRECT MARKETING SPECIALIST: SURESH
[2017-02-05] MEDS: TAMSULOSIN 0.4 MG CAP PO SCH (08:40)
[2017-02-05] MEDS: LACTOBACILLUS RHAMNOSUS GG 1 EACH CAP PO SCH (08:40)
--- NOTE | 2017-02-05 08:49 | NUR ---
ADMINISTERED ROCEPHIN ABX. PT WITH FAMILY AT BEDSIDE. PT TOLERATING WELL. SURESH WILL CONTINUE TO MONITOR PT.
[2017-02-05] MEDS ORDERED: MORPHINE TAB ER 15 MG TABER PO PRN (09:20)
[2017-02-05] MEDS ORDERED: MORPHINE TAB ER 15 MG TABER PO SCH ×2 (09:37→12:00)
--- NOTE | 2017-02-05 11:35 | NUR ---
DR. KAYE CALLED AND ASKED PT. STATUS. INFORMED DR. KAYE THAT PT FOR D/C PER DR. HERBERT ORDER. PER DR. KAYE HOLD D/C FOR NOW UNTIL HE SEE PT.. INFORMED CHARGE NURSE ANDREW HILLS.
[2017-02-05 12:00] VITALS: BP 130/82
--- NOTE | 2017-02-05 13:45 | NUR ---
DR. KAYE CALLED BACK, INFORMED AND VERIFIED ABOUT PT. INFORMATION. PER DR. KAYE, HE GOT WRONG PT. INFORMATION AND PT. NOT UNDER HIS CARE. DR. KAYE ASKED TO CANCEL ORDER OF STAT EKG. INFORMED DR. KAYE THAT STAT EKG WAS DONE ALREADY. INFORMED DR. HERBERT THAT DR. KAYE MISTAKENLY GOT WRONG PT. INFORMATION. INFORMED CHARGE NURSE ANDREW HILLS.
--- NOTE | 2017-02-05 15:05 | NUR ---
DR. HERBERT WENT INSIDE PT. ROOM AND SPOKE TO PT.. AND PT. -BOO AND EXPLAINED ABOUT D/C INSTRUCTIONS AND TEACHING, DIET, MD PRESCRIPTION LIST AND MD FOLLOW-UP. PT. AND PT. -BOO VERBALIZED UNDERSTANDING.
[2017-02-05] MEDS ORDERED: ZOLP5TAB1 PO (15:49)
[2017-02-05] MEDS ORDERED: SULF-59 PO (15:49)
[2017-02-05] MEDS ORDERED: ATOR20TA40 PO (15:49)
[2017-02-05] MEDS ORDERED: ACET-1182 PO (15:49)
[2017-02-05] MEDS ORDERED: MSCON15 PO (15:49)
[2017-02-05] MEDS ORDERED: PSYL0.4C PO (15:49)
[2017-02-05] MEDS ORDERED: TAMS0.4C96 PO (15:49)
--- NOTE | 2017-02-05 16:00 | NUR ---
EXPLAINED TO PT. AND PT. ABOUT MD D/C ORDER, D/C INSTRUCTIONS AND TEACHING, MD D/C PRESCRIPTION LIST EDUCATION, MD FOLLOW-UP, PAIN MANAGEMENT TEACHING, DISEASE MANAGEMENT TEACHING, DIET. PT. AND PT. -BOO VERBALIZED UNDERSTANDING.
--- NOTE | 2017-02-05 16:30 | NUR ---
D/C HOME VIA WHEELCHAIR, ACCOMPANIED BY PT. -BOO. AWAKE, ALERT, AND ORIENTED X4. SPEECH CLEAR. NO C/O PAIN. NO SOB, NOTED. IN STABLE CONDITION. INFORMED CHARGE NURSE ANDREW HILLS.
== END 2017-02-05 16:30 | disposition home or self-care (01) | DRG 446 ==
LOC: MED 19:02 → MTU 22:10
PROVIDERS: ADMIT Family Medicine; ATTEND Family Medicine
PROC: 0T768DZ Dilation of Right Ureter with Intraluminal Device, Via Natural or Artificial Opening Endoscopic (ICD-10-PCS; 2017-02-04)
PROC: 0TC68ZZ Extirpation of Matter from Right Ureter, Via Natural or Artificial Opening Endoscopic (ICD-10-PCS; principal; 2017-02-04 14:00)
DX: T83.022A Displacement of nephrostomy catheter, initial encounter (principal); N17.0 Acute kidney failure with tubular necrosis; N13.2 Hydronephrosis with renal and ureteral calculous obstruction; N39.0 Urinary tract infection, site not specified; E78.5 Hyperlipidemia, unspecified; E02 Subclinical iodine-deficiency hypothyroidism; Z96.0 Presence of urogenital implants; D72.829 Elevated white blood cell count, unspecified
CPT/HCPCS: 36415; 80048; 80053; 81001; 82150; 83036; 83690; 83735; 83880; 84100; 84436; 84439; 84443; 84479; 85025; 85610; 85730; 87077; 87081; 87086; 87186; 93005; 96361; 96365; 96375; 99285; C1758; C1769; J0696; J1100; J1170; J1885; J2175; J2250; J2405; J2704; J3010; J7030; J7060